=== PATIENT | female | born 1945 | race Caucasian/White ===

== ENCOUNTER 2022-05-11 07:40 | Inpatient (IN) ==
[2022-05-08 12:56] LABS: Basophils # 0.1 10*3/uL (0.0-0.2); Basophils % 0.5 % (0.0-0.8); Eosinophils # 0.2 10*3/uL (0.0-0.87); Eosinophils % 1.4 % (0.00-10.9); Hematocrit 43.6 VOL% (35.7-47.0); Hemoglobin 13.6 GM/DL (12.0-16.0); Immature Granulocytes % 0.3 %; Immature Granulocytes Absolute 0.04 #; Lymphocytes # 3.2 10*3/uL (1.4-4.0); Lymphocytes % 24.2 % (21.3-54.2); Mean Corpuscular HGB Conc 31.2 GM/DL (32-36); Mean Platelet Volume 9.7 FL (9.6-12.0); Monocytes # 1.1 10*3/uL (0.11-0.8); Monocytes % 8.4 % (1.7-12.7); Neutrophils % 65.2 % (38.7-73.9); Platelet Count 368 T/CUMM (130-400); Red Blood Count 5.25 MC/CUMM (3.8-5.5); Red Cell Distribution Width 14.9 % (9.3-17.3); White Blood Count 13.3 T/CUMM (4-12)
[2022-05-08 13:22] LABS: Albumin 3.3 G/DL (3.4-5.0); Bilirubin,Total 0.5 MG/DL (0.20-1.00); Calcium 9.2 MG/DL (8.5-10.1); Osmolality,Calculated 277.5 MOS/KG (273-304); Total Protein 8.3 G/DL (6.4-8.2)
[~2022-05-11 07:40] MED LIST: ALVIMOPAN 12 MG CAPSULE PO ONE; cefTRIAXone 1,000 MG in SODIUM CHLORIDE 0.9% 100 ML IV ONE
[2022-05-11] MEDS ORDERED: GABAPENTIN 400 MG CAPSULE PO ONE (08:18)
[2022-05-11] MEDS ORDERED: ACETAMINOPHEN 500 MG TABLET PO ONE (08:18)
[2022-05-11] MEDS ORDERED: DIAZEPAM 5 MG TABLET PO ONE (08:18)
[2022-05-11] MEDS ORDERED: FAMOTIDINE 20 MG TABLET PO ONE (08:18)
[2022-05-11] MEDS ORDERED: LACTATED RINGERS 1,000 ML IV SCH (08:30)
[2022-05-11] MEDS ORDERED: propofoL 200 MG/20 ML VIAL IV ONE (08:47)
[2022-05-11] MEDS ORDERED: ROCURONIUM 50 MG/5 ML VIAL IV ONE (08:47)
[2022-05-11] MEDS ORDERED: LIDOCAINE 2% 5 ML VIAL ONE (08:47)
[2022-05-11] MEDS ORDERED: SEVOFLURANE 1 UNIT/15 MINUTE INH ONE ×13 (08:47→13:25)
[2022-05-11] MEDS ORDERED: ETOMIDATE 40 MG/20 ML VIAL IV ONE (08:47)
[2022-05-11] MEDS ORDERED: SUCCINYLCHOLINE 200 MG/10 ML VIAL ONE (08:47)
[2022-05-11] MEDS ORDERED: fentaNYL 100 MCG/2 ML VIAL ONE (08:48)
[2022-05-11] MEDS ORDERED: HEPARIN/NACL 0.9% 2 UNITS/ML 1,000 UNIT/500 ML BAG IV ONE (09:05)
[2022-05-11] MEDS ORDERED: ROPIVACAINE 0.5% 30 ML VIAL ONE (09:10)
[2022-05-11] MEDS ORDERED: SUGAMMADEX 200 MG/2 ML VIAL IV ONE (12:46)
[2022-05-11] MEDS ORDERED: diphenhydrAMINE 50 MG/1 ML VIAL IV PRN ×2 (13:06→13:38)
[2022-05-11] MEDS ORDERED: PROMETHAZINE 25 MG/1 ML VIAL IM PRN (13:06)
[2022-05-11] MEDS ORDERED: LACTULOSE 20 GM/30 ML UDCUP PO PRN (13:06)
[2022-05-11] MEDS ORDERED: HYDROmorphone 1 MG/1 ML SYRINGE IV PRN (13:06)
[2022-05-11] MEDS ORDERED: ONDANSETRON 4 MG/2 ML VIAL IV PRN ×2 (13:06→13:38)
[2022-05-11] MEDS ORDERED: SIMETHICONE CHEW 125 MG TABLET PO PRN (13:06)
[2022-05-11] MEDS ORDERED: ALBUTEROL 2.5 MG/3 ML NEB RESP TX PRN (13:08)
[2022-05-11] MEDS ORDERED: ALBUTEROL/IPRATROPIUM 3 ML NEB RESP TX PRN (13:09)
[2022-05-11] MEDS ORDERED: ALBUTEROL/IPRATROPIUM 3 ML NEB RESP TX ONE (13:15)
[2022-05-11] MEDS ORDERED: PROMETHAZINE INJ 25 MG in SODIUM CHLORIDE 0.9% 50 ML IV PRN (13:38)
[2022-05-11] MEDS ORDERED: MEPERIDINE 25 MG/1 ML VIAL IV PRN (13:38)
[2022-05-11] MEDS: HYDROmorphone 1 MG/1 ML SYRINGE IV PRN ×3 (13:50→14:27)
[2022-05-11] MEDS: ACETAMINOPHEN 325 MG TABLET PO SCH ×2 (13:51→21:01)
[2022-05-11] MEDS: SODIUM CHLORIDE 0.9% 1,000 ML IV SCH ×2 (13:56→22:06)
[2022-05-11 14:06] LABS: Basophils # 0.1 10*3/uL (0.0-0.2); Basophils % 0.3 % (0.0-0.8); Eosinophils # 0.1 10*3/uL (0.0-0.87); Eosinophils % 0.5 % (0.00-10.9); Hematocrit 37.5 VOL% (35.7-47.0); Hemoglobin 11.8 GM/DL (12.0-16.0); Immature Granulocytes % 0.5 %; Immature Granulocytes Absolute 0.08 #; Lymphocytes # 3.6 10*3/uL (1.4-4.0); Lymphocytes % 23.5 % (21.3-54.2); Mean Corpuscular HGB Conc 31.5 GM/DL (32-36); Mean Corpuscular Volume 82.2 FL (87-102); Mean Platelet Volume 10.1 FL (9.6-12.0); Monocytes # 1.5 10*3/uL (0.11-0.8); Neutrophils % 65.2 % (38.7-73.9); Platelet Count 324 T/CUMM (130-400); Red Blood Count 4.56 MC/CUMM (3.8-5.5); Red Cell Distribution Width 14.7 % (9.3-17.3); White Blood Count 15.3 T/CUMM (4-12)
[2022-05-11 14:24] LABS: Calcium 8.6 MG/DL (8.5-10.1); Osmolality,Calculated 281.3 MOS/KG (273-304); Potassium 3.4 MMOL/L (3.5-5.1)
[2022-05-11] MEDS ORDERED: INFLUENZA VIRUS VACCINE 0.5 ML SYRINGE IM ONE (15:11)
[2022-05-11] MEDS ORDERED: PNEUMOCOCCAL VACCINE (13 VALENT) 0.5 ML SYRINGE IM ONE (15:11)
[2022-05-11] MEDS: ALVIMOPAN 12 MG CAPSULE PO SCH (21:01)
[2022-05-11] MEDS: DOCUSATE SODIUM 100 MG CAPSULE PO SCH (21:02)
[2022-05-12] MEDS: ACETAMINOPHEN 325 MG TABLET PO SCH ×4 (00:34→20:25)
[2022-05-12 05:39] LABS: Basophils % 0.3 % (0.0-0.8); Eosinophils # 0.1 10*3/uL (0.0-0.87); Eosinophils % 0.7 % (0.00-10.9); Hematocrit 38.7 VOL% (35.7-47.0); Hemoglobin 12.3 GM/DL (12.0-16.0); Immature Granulocytes % 0.3 %; Immature Granulocytes Absolute 0.04 #; Lymphocytes # 1.8 10*3/uL (1.4-4.0); Lymphocytes % 14.4 % (21.3-54.2); Mean Corpuscular HGB Conc 31.8 GM/DL (32-36); Mean Corpuscular Volume 82.5 FL (87-102); Mean Platelet Volume 10.1 FL (9.6-12.0); Monocytes # 1.1 10*3/uL (0.11-0.8); Monocytes % 8.8 % (1.7-12.7); Neutrophils % 75.5 % (38.7-73.9); Platelet Count 303 T/CUMM (130-400); Red Blood Count 4.69 MC/CUMM (3.8-5.5); Red Cell Distribution Width 14.8 % (9.3-17.3); White Blood Count 12.2 T/CUMM (4-12)
[2022-05-12] MEDS: SODIUM CHLORIDE 0.9% 1,000 ML IV SCH (05:42)
[2022-05-12 05:45] LABS: Calcium 8.3 MG/DL (8.5-10.1); Osmolality,Calculated 281.1 MOS/KG (273-304); Potassium 3.4 MMOL/L (3.5-5.1)
[2022-05-12] MEDS: ALVIMOPAN 12 MG CAPSULE PO SCH ×2 (09:31→20:25)
[2022-05-12] MEDS: methIMAzole 5 MG TABLET PO SCH (09:31)
[2022-05-12] MEDS: amLODIPine 10 MG TABLET PO SCH (09:32)
[2022-05-12] MEDS: cefTRIAXone 1,000 MG in SODIUM CHLORIDE 0.9% 100 ML IV SCH (09:32)
[2022-05-12] MEDS: PANTOPRAZOLE 40 MG TABLET PO SCH (09:32)
[2022-05-12] MEDS: DOCUSATE SODIUM 100 MG CAPSULE PO SCH ×2 (09:32→20:25)
[2022-05-12] MEDS: METOPROLOL TARTRATE 25 MG TABLET PO SCH (09:32)
[2022-05-12] MEDS ORDERED: POTASSIUM CHLORIDE 20 MEQ TABLET PO ONE (10:02)
[2022-05-12] MEDS ORDERED: MAGNESIUM SULF RIDER 4 GM/100 ML PREMIX IV PRN (10:02)
[2022-05-12] MEDS ORDERED: MAGNESIUM SULF RIDER 2 GM/50 ML PREMIX IV PRN (10:02)
[2022-05-12 10:11] LABS: Bilirubin,Urine Negative (Negative); Blood, Urine Moderate mg/dL (Negative); Glucose,Urine (UA) Negative (Negative); Ketones,Urine 5 mg/dL (Negative); Mucus,Urine Occasional /LPF (Occasional); Nitrite,Urine Negative (Negative); Protein,Urine Negative (Negative); RBC,Urine 1 /HPF (0-4); Squamous Epithelial Cell,Urine Occasional /HPF (0-10); Urine Appearance CLEAR (Clear); Urine Color Yellow (Yellow); Urine Urobilinogen < 2.0 eU/dL (<2.0)
[2022-05-13] MEDS: ACETAMINOPHEN 325 MG TABLET PO SCH ×2 (01:26→06:44)
[2022-05-13 05:25] LABS: Basophils % 0.3 % (0.0-0.8); Eosinophils # 0.3 10*3/uL (0.0-0.87); Eosinophils % 1.9 % (0.00-10.9); Hematocrit 38.2 VOL% (35.7-47.0); Immature Granulocytes % 0.4 %; Immature Granulocytes Absolute 0.05 #; Lymphocytes # 1.9 10*3/uL (1.4-4.0); Lymphocytes % 13.7 % (21.3-54.2); Mean Corpuscular HGB Conc 31.4 GM/DL (32-36); Mean Corpuscular Volume 83.8 FL (87-102); Mean Platelet Volume 10.6 FL (9.6-12.0); Monocytes # 1.5 10*3/uL (0.11-0.8); Monocytes % 10.3 % (1.7-12.7); Neutrophils % 73.4 % (38.7-73.9); Platelet Count 302 T/CUMM (130-400); Red Blood Count 4.56 MC/CUMM (3.8-5.5); White Blood Count 14.1 T/CUMM (4-12)
[2022-05-13 05:42] LABS: Calcium 8.7 MG/DL (8.5-10.1); Osmolality,Calculated 277.4 MOS/KG (273-304); Potassium 3.5 MMOL/L (3.5-5.1)
[2022-05-13 07:41] VITALS: BP 150/70
[2022-05-13] MEDS: amLODIPine 10 MG TABLET PO SCH (08:49)
[2022-05-13] MEDS: DOCUSATE SODIUM 100 MG CAPSULE PO SCH (08:49)
[2022-05-13] MEDS: METOPROLOL TARTRATE 25 MG TABLET PO SCH (08:49)
[2022-05-13] MEDS: PANTOPRAZOLE 40 MG TABLET PO SCH (08:49)
[2022-05-13] MEDS: ALVIMOPAN 12 MG CAPSULE PO SCH (08:49)
[2022-05-13] MEDS: methIMAzole 5 MG TABLET PO SCH (08:50)
[2022-05-13] MEDS: cefTRIAXone 1,000 MG in SODIUM CHLORIDE 0.9% 100 ML IV SCH (08:50)
== END 2022-05-13 11:30 | disposition home or self-care (01) | DRG 657 ==
LOC: N.OR 07:40 → N.SDSINP 07:41 → N.3E 14:27
PROVIDERS: ADMIT Surgery; ATTEND Surgery